=== PATIENT | male | born 1945 | race Caucasian/White ===

== ENCOUNTER 2019-10-29 14:16 | Outpatient (CLI) | payer MEDICARE, SELFPAY ==
[2019-10-29 15:09] LABS: Alanine Aminotransferase 26 U/L (4-50); Albumin Level 4.5 g/dL (3.5-5.1); Alkaline Phosphatase 67 U/L (38-126); Anion Gap 10.7 mmol/L (7-16); Aspartate Amino Transferase 24 U/L (17-59); Bilirubin,Total 0.6 mg/dL (0.2-1.3); Blood Urea Nitrogen 11 mg/dL (9-20); Calcium 9.2 mg/dL (8.4-10.2); Carbon Dioxide 30 mmol/L (22-30); Chloride 103 mmol/L (98-107); Cholesterol 106 mg/dL (0-200); Estimated Glomerular Filt Rate > 60; Glucose 89 mg/dL (75-110); HDL Direct 40 mg/dL; Potassium 4.7 mmol/L (3.4-5.0); Sodium 139 mmol/L (137-145); Triglycerides 225 mg/dL (<150)
[2019-10-29 15:20] LABS: LDL Cholesterol Direct 46 mg/dL
== END 2019-10-29 14:17 | disposition home or self-care (01) ==
LOC: ANHLAB 14:22
PROVIDERS: PCP Internal Medicine; Visit Provider Nurse Practitioner
DX: E78.5 Hyperlipidemia, unspecified (principal); Z79.899 Other long term (current) drug therapy
CPT/HCPCS: 36415; 80053; 80061; 84439; 84443

== ENCOUNTER 2020-11-03 15:47 | Outpatient (CLI) | payer MEDICARE, SELFPAY ==
[2020-11-03 16:50] LABS: Alanine Aminotransferase 20 U/L (4-50); Albumin Level 4.8 g/dL (3.5-5.1); Alkaline Phosphatase 67 U/L (38-126); Anion Gap 9 mmol/L (8-16); Aspartate Amino Transferase 23 U/L (17-59); Blood Urea Nitrogen 14 mg/dL (9-20); Calcium 9.8 mg/dL (8.4-10.2); Carbon Dioxide 24 mmol/L (22-30); Chloride 106 mmol/L (98-107); Cholesterol 118 mg/dL (0-200); Estimated Glomerular Filt Rate > 60; Glucose 123 mg/dL (65-110); HDL Direct 46 mg/dL; Potassium 4.9 mmol/L (3.4-5.0); Sodium 139 mmol/L (137-145); Triglycerides 349 mg/dL (<150)
[2020-11-03 17:05] LABS: LDL Cholesterol Direct 42 mg/dL
[2020-11-03 18:00] LABS: Prostate Specific Antigen 0.7 ng/mL (< OR = 4.0)
== END 2020-11-03 15:48 | disposition home or self-care (01) ==
PROVIDERS: PCP Internal Medicine; Visit Provider Nurse Practitioner
DX: Z12.5 Encounter for screening for malignant neoplasm of prostate (principal); E78.5 Hyperlipidemia, unspecified
CPT/HCPCS: 36415; 80053; 80061; 84153; G0103

== ENCOUNTER → 2020-11-21 13:46 | Outpatient (REF) | payer MEDICARE, SELFPAY | LOC: ANHLAB 13:46 | PROVIDERS: PCP Internal Medicine; Visit Provider Nurse Practitioner | DX: C44.229 Squamous cell carcinoma of skin of left ear and external auricular canal (principal) | CPT/HCPCS: 88305 ==

== ENCOUNTER → 2021-01-10 10:21 | Outpatient (REF) | payer MEDICARE, SELFPAY | LOC: ANHLAB 10:21 | PROVIDERS: PCP Internal Medicine; Visit Provider Nurse Practitioner | DX: C44.229 Squamous cell carcinoma of skin of left ear and external auricular canal (principal) | CPT/HCPCS: 88305; 88331 ==

== ENCOUNTER 2021-05-10 13:09 | Outpatient (CLI) | payer MEDICARE, SELFPAY ==
[2021-05-10 14:10] LABS: Cholesterol 112 mg/dL (0-200); HDL Direct 45 mg/dL; Triglycerides 128 mg/dL (<150)
[2021-05-10 14:21] LABS: LDL Cholesterol Direct 47 mg/dL
== END 2021-05-10 13:10 | disposition home or self-care (01) ==
PROVIDERS: PCP Internal Medicine; Visit Provider Nurse Practitioner
DX: E78.5 Hyperlipidemia, unspecified (principal)
CPT/HCPCS: 36415; 80061

== ENCOUNTER 2021-11-19 13:25 | Outpatient (CLI) | payer MEDICARE, SELFPAY ==
[2021-11-19 13:47] LABS: Alanine Aminotransferase 24 U/L (6-50); Albumin Level 4.8 g/dL (3.5-5.1); Alkaline Phosphatase 56 U/L (38-126); Anion Gap 8 mmol/L (8-16); Aspartate Amino Transferase 28 U/L (17-59); Blood Urea Nitrogen 15 mg/dL (9-20); Calcium 9.1 mg/dL (8.4-10.2); Carbon Dioxide 29 mmol/L (22-30); Chloride 101 mmol/L (98-107); Cholesterol 101 mg/dL (0-200); Estimated Glomerular Filt Rate > 60; Glucose 121 mg/dL (65-110); HDL Direct 45 mg/dL; Potassium 4.8 mmol/L (3.4-5.0); Sodium 138 mmol/L (137-145); Triglycerides 133 mg/dL (<150)
[2021-11-19 13:58] LABS: LDL Cholesterol Direct 32 mg/dL
[2021-11-19 14:17] LABS: Prostate Specific Antigen 0.8 ng/mL (< OR = 4.0)
== END 2021-11-19 13:26 | disposition home or self-care (01) ==
LOC: ANHLAB 13:27
PROVIDERS: PCP Internal Medicine; Visit Provider Internal Medicine
DX: E78.5 Hyperlipidemia, unspecified (principal); I10 Essential (primary) hypertension; Z79.899 Other long term (current) drug therapy; Z12.5 Encounter for screening for malignant neoplasm of prostate
CPT/HCPCS: 36415; 80053; 80061; 84153; G0103

== ENCOUNTER 2021-11-26 09:18 | Outpatient (CLI) | payer MEDICARE, SELFPAY ==
--- NOTE | ~2021-11-26 | CT_ITS ---
EXAMINATION:CT lung screening DATE: 11/26/2021 09:55 INDICATION: Tobacco use. Current smoker with 30 pack year history. TECHNIQUE: Computed tomography (CT) of the chest was performed without intravenous contrast. Automate d exposure control and iterative reconstruction technique were employed. The dose-length product (DLP ) was 115.00 mGy-cm. COMPARISON: CT abdomen and pelvis 01/13/2013 FINDINGS: There is mild scarring at the lung apices. There is moderate emphysema. There is mild atele ctasis bilaterally. Calcified bilateral lung nodules are consistent with old granulomatous disease. N o pleural effusion. The heart size is normal. No pericardial effusion. There is mild pectus excavatum . Chronic splenomegaly is noted. There is mild thoracic spondylosis. IMPRESSION: 1. Lung-RADS category 2: Benign appearance or behavior. Continue annual screening with noncontrast lo w-dose chest CT in 12 months. Reviewed, dictated and finalized at location A. IMPRESSION: 1. Lung-RADS category 2: Benign appearance or behavior. Continue annual screeni ng with noncontrast low-dose chest CT in 12 months.
== END 2021-11-26 09:19 | disposition home or self-care (01) ==
LOC: ANHIMG 09:24
PROVIDERS: PCP Internal Medicine; Visit Provider Internal Medicine
DX: Z12.2 Encounter for screening for malignant neoplasm of respiratory organs (principal); Z87.891 Personal history of nicotine dependence
CPT/HCPCS: 71271

== ENCOUNTER 2022-08-08 12:51 | Outpatient (CLI) | payer MEDICARE, SELFPAY ==
[2022-08-08 13:24] LABS: Alanine Aminotransferase 28 U/L (6-50); Alkaline Phosphatase 52 U/L (38-126); Anion Gap 10 mmol/L (8-16); Aspartate Amino Transferase 34 U/L (17-59); Bilirubin,Total 1.2 mg/dL (0.2-1.3); Blood Urea Nitrogen 18 mg/dL (9-20); Calcium 8.8 mg/dL (8.4-10.2); Carbon Dioxide 25 mmol/L (22-30); Chloride 103 mmol/L (98-107); Cholesterol 105 mg/dL (0-200); Estimated Glomerular Filt Rate > 60; Glucose 114 mg/dL (65-110); HDL Direct 43 mg/dL; Potassium 4.8 mmol/L (3.4-5.0); Sodium 138 mmol/L (137-145); Triglycerides 144 mg/dL (<150)
[2022-08-08 13:34] LABS: LDL Cholesterol Direct 41 mg/dL
== END 2022-08-08 12:52 | disposition home or self-care (01) ==
PROVIDERS: PCP Family Medicine; Visit Provider Nurse Practitioner
DX: E78.5 Hyperlipidemia, unspecified (principal)
CPT/HCPCS: 36415; 80053; 80061

== ENCOUNTER 2023-02-18 14:13 | Outpatient (CLI) | payer MEDICARE, SELFPAY ==
[2023-02-18 15:00] LABS: Hematocrit 40.8 % (42.0-52.0); Hemoglobin 12.9 g/dL (14.0-18.0); Mean Corpuscular HGB Conc 31.6 g/dl (32-36); Mean Corpuscular Hemoglobin 29.9 pg (26-34); Mean Corpuscular Volume 94.4 fl (80-100); Mean Platelet Volume 9.5 fl (7.4-10.4); Platelet Count Result 388 k/mm3 (150-375); Red Blood Count 4.32 M/mm3 (4.6-6.20); Red Cell Distribution Width 16.6 % (11.5-14.5); White Blood Count 10.3 K/mm3 (4.5-10.0)
[2023-02-18 15:07] LABS: Alanine Aminotransferase 19 U/L (6-50); Albumin Level 4.5 g/dL (3.5-5.1); Alkaline Phosphatase 54 U/L (38-126); Anion Gap 7 mmol/L (8-16); Aspartate Amino Transferase 28 U/L (17-59); Bilirubin,Total 1.1 mg/dL (0.2-1.3); Blood Urea Nitrogen 14 mg/dL (9-20); Calcium 8.9 mg/dL (8.4-10.2); Carbon Dioxide 29 mmol/L (22-30); Chloride 104 mmol/L (98-107); Cholesterol 107 mg/dL (0-200); Estimated Glomerular Filt Rate > 60; Glucose 112 mg/dL (65-110); HDL Direct 43 mg/dL; Potassium 4.6 mmol/L (3.4-5.0); Sodium 140 mmol/L (137-145); Triglycerides 125 mg/dL (<150)
[2023-02-18 15:17] LABS: LDL Cholesterol Direct 49 mg/dL
== END 2023-02-18 14:14 | disposition home or self-care (01) ==
PROVIDERS: PCP Family Medicine; Visit Provider Nurse Practitioner
DX: R61 Generalized hyperhidrosis (principal); E78.5 Hyperlipidemia, unspecified
CPT/HCPCS: 36415; 80053; 80061; 85027

== ENCOUNTER 2023-03-22 14:20 | Emergency (ER) | payer MEDICARE, SELFPAY ==
--- NOTE | ~2023-03-22 | XR_ITS ---
EXAMINATION: XR chest 1V portable 03/22/2023 19:52 INDICATION: Cough PROCEDURE: 2 view chest COMPARISON: Comparison to multiple prior studies sequentially, with oldest reviewed study dated 08/2005. FINDINGS: The lungs are clear. The cardiomediastinal silhouette is within normal limits. There are no pleural effusions. There is no pneumothorax suspected. Calcified granuloma left lung base. IMPRESSION: 1: NO ACUTE CARDIOPULMONARY DISEASE. Reviewed, dictated and finalized at location A. OPERATIONS INTELLIGENCE CHIEF
[2023-03-22 14:23] VITALS: BP 118/53; PULSE 38; RESP 18; TEMP 37; O2SAT 97
--- NOTE | 2023-03-22 14:35 | ECG_ITS ---
Measurements Intervals [place] Rate: 93 P: 79 CO: 180 QRS: 0 QRSD: 96 T: 75 QT: 357 QTc: 445 Interpretive Statements SINUS RHYTHM WITH FREQUENT SUPRAVENTRICULAR PREMATURE COMPLEXES POSSIBLE RIGHT VENTRICULAR CONDUCTION DELAY [RSR (QR) IN V1/V2] NO PREVIOUS ECG AVAILABLE FOR COMPARISON Electronically Signed On 03-22-2023 19:55:30 SOCIAL INSURANCE ANALYST by Heather Long M.D.
[2023-03-22 14:57] LABS: Hematocrit 41.5 % (42.0-52.0); Hemoglobin 13.2 g/dL (14.0-18.0); Mean Corpuscular HGB Conc 31.8 g/dl (32-36); Mean Corpuscular Hemoglobin 29.8 pg (26-34); Mean Corpuscular Volume 93.7 fl (80-100); Mean Platelet Volume 10.1 fl (7.4-10.4); Platelet Count Result 355 k/mm3 (150-375); Red Blood Count 4.43 M/mm3 (4.6-6.20); Red Cell Distribution Width 16.9 % (11.5-14.5); White Blood Count 6.5 K/mm3 (4.5-10.0)
[2023-03-22 15:03] LABS: Alanine Aminotransferase 31 U/L (6-50); Albumin Level 4.7 g/dL (3.5-5.1); Alkaline Phosphatase 60 U/L (38-126); Anion Gap 11 mmol/L (8-16); Aspartate Amino Transferase 42 U/L (17-59); Bilirubin,Total 1.4 mg/dL (0.2-1.3); Blood Urea Nitrogen 19 mg/dL (9-20); Calcium 8.8 mg/dL (8.4-10.2); Carbon Dioxide 27 mmol/L (22-30); Chloride 101 mmol/L (98-107); Estimated CRCL calculation 55 ml/min; Estimated Glomerular Filt Rate > 60; Glucose 211 mg/dL (65-110); Lipase 41 U/L (23-300); Sodium 139 mmol/L (137-145)
[2023-03-22 15:34] LABS: Influenza A QL RT-PCR Negative (Negative); Influenza B QL RT-PCR Negative (Negative); RSV RNA, RT-PCR Negative (Negative); SARS-CoV-2 RNA PCR Positive (Negative)
[2023-03-22 15:41] LABS: Band Neutrophils Percent 6 % (0-6); Eosinophils Absolute Manual 0.13 K/mm3 (0.02-0.5); Eosinophils Percent Manual 2 % (0-4); Lymphocytes Absolute Manual 0.65 K/mm3 (1.1-4.5); Neutrophils Absolute Manual 5.72 K/mm3 (1.3-6.7); Neutrophils Percent Manual 82 % (46-73); Nucleated Red Blood Cells 1 %; Total Cells Counted 100
[2023-03-22 15:42] LABS: Hypochromasia 1+ (NORMAL); Platelet Estimate Adequate (Adequate); Schistocytes None Seen (NORMAL)
[2023-03-22 15:43] LABS: Anisocytosis 2+ (NORMAL)
[2023-03-22 18:05] VITALS: BP 123/77; PULSE 82; RESP 16; O2SAT 95
--- NOTE | 2023-03-22 19:36 | ED.GENADULT ---
HPI - General Adult General Chief complaint: Unspecified Stated complaint: flu Time Seen by Provider: 03/22/23 19:28 History of Present Illness HPI narrative: Patient is a 77-year-old male who presents to the emergency department this evening due to cough and in congestion. Son who is present at bedside provides the majority of the history as the patient is very hard of hearing. Son states that the patient has been exposed to COVID recently and when he started to cough son decided to bring him in for further evaluation and check an x-ray does not have a pneumonia. Patient denies any symptoms including chest pain, shortness of breath, nausea, vomiting, abdominal pain, dysuria, hematuria, constipation, diarrhea, melena, hematochezia, fevers or chills. Patient also denies any headaches, dizziness, lightheadedness, blurry visions, focal weakness, numbness and or tingling. There are no other modifying, alleviating, or precipitating factors at this time. Related Data Home Medications Medication Instructions Recorded Confirmed famotidine 20 mg tablet (Pepcid AC) 20 mg PO DAILY 05/03/19 08/15/22 aspirin 81 mg tablet,delayed 162 mg PO BID 11/04/19 08/15/22 release Allergies Allergy/AdvReac Type Severity Reaction Status Date / Time pseudoephedrine Allergy Unknown Unknown Verified 02/25/23 13:26 Tetanus Vaccines and Toxoid Allergy Unknown Unknown Verified 02/25/23 13:26 BEES Allergy Severe SEVERE Uncoded 02/25/23 13:26 REACTIONS Horse Serum Proteins Allergy Severe SEVERE Uncoded 02/25/23 13:26 LOCAL REACTION Review of Systems Review of Systems: All systems are reviewed and are negative unless stated otherwise in the HPI. [facility] Past Medical History Medical History Benign essential hypertension CAD (coronary artery disease) Deafness History of GI bleed Insomnia Lumbago Other and unspecified hyperlipidemia Surgical History Surgical History History of appendectomy History of cardiac cath History of coronary artery stent placement History of tonsillectomy and adenoidectomy Social History Social History Social History: pt states he quit smoking 6months Smoking packs per day: 0.5 Smoking cigarettes per day: 10.0 Years smoked: 60 Smoking pack-years: 30.00 Smoking status: Former smoker Tobacco type: cigarettes Second hand tobacco smoke exposure: Yes Alcohol intake: current Alcohol use details: social Substance use: never Substance use type: does not use Exam Narrative: General: Alert, awake, afebrile, in no acute distress. HEENT: PERRL, no rhinorrhea, no post nasal drip, oropharynx clear. Neck: Trachea midline, no JVD, no lymphadenopathy. Cardiovascular: Regular rate and rhythm, no murmurs, rubs or gallops, no peripheral edema. Respiratory: Clear to auscultation bilaterally, no tachypnea, no wheezing, no rhonchi, no rubs, no respiratory distress. Abdomen: Soft, nontender, nondistended, no rebound, no guarding, no peritoneal signs. Musculoskeletal: No joint swelling or deformity, normal muscle tone. Skin: No rashes or petechia, no signs of infection. Psychiatric: Alert and oriented, normal behavior and judgment for situation. Neurological: Alert and oriented to person, place, and time. Follows all commands. No focal deficits, speech is clear and fluent. Course Vital Signs Vital signs: Vital Signs Temperature 98.6 F 03/22/23 14:23 Pulse Rate 38 L 03/22/23 14:23 Respiratory Rate 18 03/22/23 14:23 Blood Pressure 118/53 L 03/22/23 14:23 Pulse Oximetry 97 03/22/23 14:23 Oxygen Delivery Room Air 03/22/23 14:23 Temperature 98.6 F 03/22/23 14:23 Pulse Rate 82 03/22/23 18:05 Respiratory Rate 16 03/22/23 18:05 Blood Pressure 123/77 03/22/23 18:05 Pulse Oximetry 95
[2023-03-22 20:34] VITALS: BP 112/80; PULSE 86; O2SAT 97
== END 2023-03-22 20:44 | disposition home or self-care (01) ==
PROVIDERS: Emergency Medicine; Emergency Provider Emergency Medicine; PCP Family Medicine
DX: U07.1 COVID-19 (principal); I10 Essential (primary) hypertension; I25.10 Atherosclerotic heart disease of native coronary artery without angina pectoris; H91.90 Unspecified hearing loss, unspecified ear; E78.5 Hyperlipidemia, unspecified
CPT/HCPCS: 36415; 71045; 80053; 83690; 85025; 87637; 93005; 99283

== ENCOUNTER 2023-04-23 14:08 | Emergency (ER) | payer MEDICARE, SELFPAY ==
[2023-04-23] VITALS (9 sets, daily range): BP systolic 111–132; BP diastolic 63–79; PULSE 61–75; RESP 15–18; TEMP 36.3; O2SAT 97–100
--- NOTE | ~2023-04-23 | XR_ITS ---
EXAMINATION: XR chest 2V DATE: 04/23/2023 16:40 INDICATION: Fall. TECHNIQUE: Frontal and lateral views of the chest were obtained. COMPARISON: Chest single view 03/22/2023, chest CT 11/26/2021 FINDINGS: Calcified bilateral lung nodules are consistent with old granulomatous disease. There is mi ld scarring at the lung apices. No pleural effusion or pneumothorax. Cardiomegaly is noted. Pectus ex cavatum is noted. IMPRESSION: 1. Stable mild scarring at the lung apices. 2. Cardiomegaly. Reviewed, dictated and finalized at location E. [employer]
--- NOTE | ~2023-04-23 | CT_ITS ---
EXAMINATION: CT abdomen pelvis w con DATE: 04/23/2023 18:32 INDICATION: Right abdominal pain. TECHNIQUE: Computed tomography (CT) of the abdomen and pelvis was performed with 100 mL Omnipaque 350 intravenous contrast. Automated exposure control and iterative reconstruction technique were employe d. The dose-length product was 479.78 mGy-cm. COMPARISON: CT abdomen and pelvis 01/13/2013 FINDINGS: The visualized portions of the lung bases demonstrate mild atelectasis. There is a tiny rig ht pneumothorax. There is gas in right chest wall. There are fractures of the right 10th, 11th, and 1 2th ribs. The heart size is normal. 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 There is a small pericardial effusion. The liver and gallbladder are normal. There is severe splenomegaly measuring 22.8 cm. The pancreas, adrenal glands, and right kidney are no rmal. There is a 5 mm cyst in left kidney. There is a left inguinal hernia containing fat. There is d iverticulosis of the colon without evidence of diverticulitis. There are no dilated loops of bowel. T he appendix is not visualized. There are no pathologically enlarged lymph nodes. There is no free int raperitoneal fluid. There are changes of right inguinal hernia repair. There is severe lumbar spondyl osis. IMPRESSION: 1. Acute fractures of the right 10th-12th ribs. 2. Tiny right pneumothorax. 3. Small pericardial effusion. 4. Severe splenomegaly, worsened from 01/13/2013. Reviewed, dictated and finalized at location E. FINISHER
--- NOTE | ~2023-04-23 | CT_ITS ---
EXAMINATION:CT diagnostic chest w con DATE: 04/23/2023 20:03 INDICATION: Right chest pain. Right pneumothorax. TECHNIQUE: Computed tomography (CT) of the chest was performed with 75 mL Omnipaque 350 intravenous c ontrast. Automated exposure control and iterative reconstruction technique were employed. The dose-le ngth product (DLP) was 213.00 mGy-cm. COMPARISON: Chest CT 11/26/2021 FINDINGS: There is moderate emphysema. There is a small right pneumothorax. There is mild atelectasis bilaterally. Calcified bilateral lung nodules are consistent with old granulomatous disease. No pleu ral effusion. There is gas in right chest wall. 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 There is a small pericardial effusion. There is severe splenomega ly. There are fractures of right 10th, 11th, and 12th ribs. IMPRESSION: 1. Acute fractures of right 10th-12th ribs. 2. Small right pneumothorax. 3. Small pericardial effusion. 4. Moderate emphysema. 5. Severe splenomegaly. Reviewed, dictated and finalized at location E. EL ENGINEER
--- NOTE | 2023-04-23 17:07 | ED.FALL ---
HPI - Fall General Chief Complaint: Fall Stated Complaint: pain from fall Time Seen by Provider: 04/23/23 16:45 Source: patient Limitations: language barrier (partially deaf) History of Present Illness HPI Narrative: patient is partially deaf and presents with the following note: Doctor what happened, I was out on my deck Friday walking down the stairs to the bird feeder, but deck and stairs were kind of watery with little or no ice. At the bottom of the stairs is a concrete pad, I stepped on that and both feet flew out from under me and I hit my right side and right back on the wooden stairs. Now right side of back was hurting, so I took 2 aspirins and went to bed. Friday still sore but pain has moved along to the outside of ribcage. Took 2 aspirins every 4 hours. Friday about the same but later that night pain really hurting on right side and aspirins not helping! Friday pain really hurting and I can not sleep on my left side either and I do not sleep on my back as it makes my back is sore, but had no choice! Woke up sweating, hurting and temp only 97.2. Something is wrong I should be getting better, not worse. Shouldn't have to hold my right side to get up and do things. What do you recommend? x-rays? CT scan ? Just go the ER at the hospital? Patient is reasonably well understand when he speaks. Able to confirm that above history. States he tried to give note to PCP who recommended he present to the ED, has not been worked up for these injuries yet. He confirms that it was 2 325mg tablets of aspirin he was taking every 4 hours at times, not acetaminophen or ibuprofen. Cause of hearing loss is unknown, he states he saw someone for it at [facility] 16 years ago. He has a chronic cough but attributes this to smoking, quit 2 years ago; no acute changes. Did not lose consciousness. Not on blood thinners. LBM was 2-3 days ago. No blood in urine or stool. Decreased PO intake. Related Data Home Medications Medication Instructions Recorded Confirmed famotidine 20 mg tablet (Pepcid AC) 20 mg PO DAILY 05/03/19 08/15/22 aspirin 81 mg tablet,delayed 162 mg PO BID 11/04/19 08/15/22 release Allergies Allergy/AdvReac Type Severity Reaction Status Date / Time pseudoephedrine Allergy Unknown Unknown Verified 02/25/23 13:26 Tetanus Vaccines and Toxoid Allergy Unknown Unknown Verified 02/25/23 13:26 BEES Allergy Severe SEVERE Uncoded 02/25/23 13:26 REACTIONS Horse Serum Proteins Allergy Severe SEVERE Uncoded 02/25/23 13:26 LOCAL REACTION PMFSH Past Medical History Medical History Benign essential hypertension CAD (coronary artery disease) Deafness History of GI bleed Insomnia Lumbago Other and unspecified hyperlipidemia Surgical History Surgical History History of appendectomy History of cardiac cath History of coronary artery stent placement History of tonsillectomy and adenoidectomy Social History Social History Social History: Has a son Smoking packs per day: 0.5 Smoking cigarettes per day: 10.0 Years smoked: 60 Smoking pack-years: 30.00 Smoking status: Former smoker Tobacco type: cigarettes Second hand tobacco smoke exposure: Yes Alcohol intake: current Alcohol use details: social Substance use: never Substance use type: does not use Living arrangements: alone Exam Const: General: no acute distress, alert and ill appearing; No confusion or diaphoretic Nutritional Appearance: well nourished Orientation/consciousness: patient oriented x3 Limitations: language barrier (partial deafness but communicates through writing ) Other: does not use ASL or read lips; patient is fairly easily understood when he talks HENMT: Head: normal to inspection Face/Nose/Sinus: Normal external nose present Eye
[2023-04-23] MEDS: HYDROcodone/acetaminophen (*CRX) 5-325 MG TABLET 1 TAB PO (17:44)
[2023-04-23] MEDS: ACETAMINOPHEN 325 MG TABLET 650 MG PO (17:44)
[2023-04-23 17:57] LABS: Hematocrit 40.1 % (42.0-52.0); Hemoglobin 12.5 g/dL (14.0-18.0); Mean Corpuscular HGB Conc 31.2 g/dl (32-36); Mean Platelet Volume 9.7 fl (7.4-10.4); Platelet Count Result 485 k/mm3 (150-375); Red Blood Count 4.31 M/mm3 (4.6-6.20); Red Cell Distribution Width 17.2 % (11.5-14.5); White Blood Count 16.4 K/mm3 (4.5-10.0)
[2023-04-23 18:07] LABS: Salicylate 8.1 mg/dL (2-20)
[2023-04-23 18:08] LABS: Alanine Aminotransferase 22 U/L (6-50); Albumin Level 4.6 g/dL (3.5-5.1); Alkaline Phosphatase 74 U/L (38-126); Anion Gap 9 mmol/L (8-16); Aspartate Amino Transferase 38 U/L (17-59); Bilirubin,Total 1.6 mg/dL (0.2-1.3); Blood Urea Nitrogen 17 mg/dL (9-20); Calcium 9.2 mg/dL (8.4-10.2); Carbon Dioxide 27 mmol/L (22-30); Chloride 103 mmol/L (98-107); Estimated Glomerular Filt Rate > 60; Glucose 124 mg/dL (65-110); Lipase 21 U/L (23-300); Potassium 4.6 mmol/L (3.4-5.0); Sodium 139 mmol/L (137-145)
[2023-04-23 18:19] LABS: Band Neutrophils Percent 4 % (0-6); Eosinophils Absolute Manual 0.16 K/mm3 (0.02-0.5); Eosinophils Percent Manual 1 % (0-4); Lymphocytes Absolute Manual 0.65 K/mm3 (1.1-4.5); Monocytes Absolute Manual 1.96 K/mm3 (0.1-0.90); Monocytes Percent Manual 12 % (3-9); Neutrophils Absolute Manual 13.61 K/mm3 (1.3-6.7); Neutrophils Percent Manual 79 % (46-73); Nucleated Red Blood Cells 1 %; Platelet Estimate Increased (Adequate); Total Cells Counted 100
[2023-04-23 18:20] LABS: Anisocytosis 2+ (NORMAL); Hypochromasia 1+ (NORMAL); Schistocytes None Seen (NORMAL)
--- NOTE | 2023-04-23 19:36 | PC.NURSE ---
1935-REPORT TO [facility]. PATIENT MOVED TO ED 12.
--- NOTE | 2023-04-23 22:04 | PC.NURSE ---
Report given to [facility] for transfer.
== END 2023-04-23 22:08 | disposition short-term general hospital (02) ==
LOC: ANHED 16:55
PROVIDERS: Emergency Provider Student in an Organized Health Care Education/Training Program; PCP Family Medicine
DX: J93.9 Pneumothorax, unspecified (principal); S22.41XA Multiple fractures of ribs, right side, initial encounter for closed fracture; D72.829 Elevated white blood cell count, unspecified; D64.9 Anemia, unspecified; H91.90 Unspecified hearing loss, unspecified ear; I10 Essential (primary) hypertension; I25.10 Atherosclerotic heart disease of native coronary artery without angina pectoris; W00.9XXA Unspecified fall due to ice and snow, initial encounter; Z79.899 Other long term (current) drug therapy
CPT/HCPCS: 36415; 71046; 71260; 74177; 80053; 80307; 83690; 85025; 99284; 99285; A9270; Q9967

== ENCOUNTER 2023-08-20 11:21 | Outpatient (CLI) | payer MEDICARE, SELFPAY ==
[2023-08-20 12:10] LABS: Alanine Aminotransferase 16 U/L (6-50); Albumin Level 4.6 g/dL (3.5-5.1); Alkaline Phosphatase 62 U/L (38-126); Anion Gap 9 mmol/L (4-12); Aspartate Amino Transferase 28 U/L (17-59); Bilirubin,Total 0.8 mg/dL (0.2-1.3); Blood Urea Nitrogen 21 mg/dL (9-20); Carbon Dioxide 26 mmol/L (22-30); Chloride 105 mmol/L (98-107); Cholesterol 98 mg/dL (0-200); Estimated Glomerular Filt Rate > 60; Glucose 108 mg/dL (65-110); HDL Direct 42 mg/dL; Potassium 5.2 mmol/L (3.4-5.0); Sodium 140 mmol/L (137-145); Triglycerides 116 mg/dL (<150)
[2023-08-20 12:21] LABS: LDL Cholesterol Direct 49 mg/dL
[2023-08-20 12:30] LABS: Hemoglobin A1C 5.2 % (<5.7)
== END 2023-08-20 11:22 | disposition home or self-care (01) ==
LOC: ANHLAB 11:23
PROVIDERS: PCP Nurse Practitioner; Visit Provider Nurse Practitioner
DX: E78.5 Hyperlipidemia, unspecified (principal); R73.09 Other abnormal glucose
CPT/HCPCS: 36415; 80053; 80061; 83036

== ENCOUNTER 2024-09-14 15:33 | Outpatient (CLI) | payer MEDICARE, SELFPAY ==
[2024-09-14 15:54] LABS: Hematocrit 39.3 % (42.0-52.0); Hemoglobin 12.7 g/dL (14.0-18.0); Mean Corpuscular HGB Conc 32.3 g/dl (32-36); Mean Corpuscular Hemoglobin 30.2 pg (26-34); Mean Corpuscular Volume 93.6 fl (80-100); Mean Platelet Volume 9.6 fl (7.4-10.4); Platelet Count Result 434 k/mm3 (150-375); Red Cell Distribution Width 17.2 % (11.5-14.5); White Blood Count 10.6 K/mm3 (4.5-10.0)
--- OUTSIDE RECORDS SUMMARY | 2024-09-14 16:27 | XMS_ITS | Clinical Summary ---
Author Organization [facility] [address] Address [address] [place] [address] Care Team Providers Care Auto Heater Mechanic Name Role Phone Mynor Eckert DO Primary Care Provider [phone] Allergies Active Allergy Reactions Criticality Noted Date Comments Tetanus Vaccines And Toxoid Medications famotidine (ACID SIDING STAPLER, FAMOTIDINE,) 20 mg tablet take 1 tablet (20MG) by ORAL route every day 0 2 Active ascorbic acid (vitamin C) 1,000 mg tablet take 1 by Oral route once 0 0 4 Active multivitamin tablet tablet take 1 by Oral route once 0 0 4 Active nitroglycerin (NITROSTAT) 0.[address] 1 tablet by buccal route at the first sign of an attack; no more than 3 tabs are recommended within a 15 minute period. 25 1 2 Active simvastatin (ZOCOR) 20 mg tablet Take 1 tablet (20 mg total) by mouth nightly. 90 tablet 3 8 Active carvedilol (COREG) 6.25 mg tablet 1 tablet 2 (two) times a day 9 Active aspirin 81 mg enteric coated tablet Take 2 tablets (162 mg total) by mouth 2 (two) times a day 4 01/28/20 28 Active cyclobenzaprine (FLEXERIL) 5 mg tablet Take 1 tablet (5 mg total) by mouth 3 (three) times a day 30 tablet 4 Active senna-docusate (PERICOLACE) 8.6-50 mgIndications:c onstipation Take 1 tablet by mouth 2 (two) times a day 10 tablet 4 Active polyethylene glycol (MIRALAX) 17 gram/dose bulk powderIndicatio ns:constipation Take 17 g by mouth daily for 7 days 119 g 4 Active oxyCODONE (ROXICODONE) 5 mg immediate release tabletIndicatio ns:Pain Take 1 tablet (5 mg total) by mouth every 4 (four) hours as needed for pain 20 tablet 4 Active lidocaine (ASPERCREME) 4 % adhesive patch,medicated Indications:liana n Place 1 patch on the skin daily 10 patch 4 Active Active Problems Problem Noted Date Diagnosed Date Closed fracture of multiple ribs of right side, initial encounter 04/24/2023 Assessment & Plan (04/24/2023 4:33 PM CATH LAB RADIOLOGY TECHNICIAN): - IS (pulling [id number] in ED) - pain control - wean O2 as able - RD HLD (hyperlipidemia) 04/24/2023 Assessment & Plan (04/24/2023 4:55 PM CATH LAB RADIOLOGY TECHNICIAN): Continue simvastatin 20 mg HS Acute pain 04/24/2023 Assessment & Plan (04/24/2023 4:57 PM CATH LAB RADIOLOGY TECHNICIAN): APAP 1 gram Q 6 hrs scheduled Flexeril 5 mg tid Oxycodone 5 mg Q 4 hrs prn Bilateral hearing loss 04/24/2023 Assessment & Plan (04/24/2023 5:01 PM CATH LAB RADIOLOGY TECHNICIAN): Pt states he does not have hearing aides, does not hear voiced, TV or movies -pt uses [employer] board for communication Coronary artery disease invo lving [place] coronary artery of [place] heart without angina pectoris 03/27/2017 Assessment & Plan (04/24/2023 4:56 PM CATH LAB RADIOLOGY TECHNICIAN): Home dose Carvedilol 6.25 mg bid Hold due to hypotensive episode likely 2/2 analgesic History of coronary artery stent placement 03/27 Social History Tobacco Use Types Packs/Day Years Used Date Smoking Tobacco: Every Day Smokeless Tobacco: Never Tobacco Cessation:Ready to Q uit: Not Asked; Counseling Given: Not Answered Comments:Smoking History Packs/day: 1 Packs Alcohol Use Standard Drinks/Week Comments No 0 (1 standard drink = 0.6 oz pur e alcohol) Personal Safety Answer Date Recorded Have you ever been in or are you currently in a harmful physical or emotional relationship or is someone making you feel afraid or unsafe? Denies 04/23/2023 Sex and Gender Information Value Date Recorded Sex Assigned at Not on file Legal Sex Male 1:56 AM CATH LAB RADIOLOGY TECHNICIAN Gender Identity Not on file Sexual Orientation Not on file Obstetrics History Last Filed Vital Signs Vital Sign Reading Time Taken Comments Blood Pressure 95/71 04/25/2023 12:00 PM CATH LAB RADIOLOGY TECHNICIAN Pulse 80 04/25/2023 1:00 PM CATH LAB RADIOLOGY TECHNICIAN Temperature 36.4 C (97.6 F) 04/25/2023 12:00 PM CATH LAB RADIOLOGY TECHNICIAN Respiratory Rate 17 04/25/2023 1:00 PM CATH LAB RADIOLOGY TECHNICIAN Oxygen Saturation 91% 04/25/2023 12:00 PM CATH LAB RADIOLOGY TECHNICIAN Inhaled Oxygen Concentration - - Weight 82.1 kg (181 lb) 04/24/2023 7:45 PM CATH LAB RADIOLOGY TECHNICIAN Height 177.8 cm (5' 10) 04/24/2023 7:45 PM CATH LAB RADIOLOGY TECHNICIAN Body Mass Index 25.97 04/24/2023 7:45 PM CATH LAB RADIOLOGY TECHNICIAN Plan of Treatment Health Maintenance Due Date Last Done Comments Depression Screening 1945 Hepatitis C Screening 1945 DTaP/Tdap/Td Vaccine (1 - Tdap) 1956 Hepatitis B Screening 11/15/1963 Pneumococcal vaccine 65+ (1 of 2 - PCV) 1964 Zoster Vaccine (1 of 2) 11/15/1995 Abdominal Aortic Aneurysm (A AA) Screen 2010 Well Visit 65+ 2010 Fall Risk Assessment 04/25/2024 04/25/2023 Influenza Vaccine (Season Ended) 2024 01/21/2016, 01/11/2015, 01/25/2014, Additional history exists Insurance [employer] MEDICARE [facility] MEDICARE ADVANTAGE MEDICARE ADVANTAGE [facility] Address: [address] [address] MEDICARE ADVANTAGE Advance Directives For more information, please contact: [phone] * Full Code (Latest Code Status on File) Date Activated Date Inactivated Comments 04/24/2023 4:27 AM 04/25/2023 6:21 PM Care Teams Auto Heater Mechanic Relationship Specialty Start Date End Date Mynor Eckert DO PCP - General Internal Medicine 04/08/19
--- OUTSIDE RECORDS SUMMARY | 2024-09-14 16:27 | XMS_ITS | Referral Summary ---
Author Organization [facility] [address] Address [address] [place] [address] Care Team Providers Care Ceo And Co Founder Name Role Phone Mynor Eckert DO Primary Care Provider [phone] Allergies Active Allergy Reactions Criticality Noted Date Comments Tetanus Vaccines And Toxoid Medications famotidine (ACID CHILD SUPPORT CASE OFFICER, FAMOTIDINE,) 20 mg tablet take 1 tablet [...] 04/24/2023 Assessment & Plan (04/24/2023 4:33 PM SPRAY BLENDER): - IS (pulling [id number] in ED) - pain control - wean O2 as able - RD HLD (hyperlipidemia) 04/24/2023 Assessment & Plan (04/24/2023 4:55 PM SPRAY BLENDER): Continue simvastatin 20 mg HS Acute pain 04/24/2023 Assessment & Plan (04/24/2023 4:57 PM SPRAY BLENDER): APAP 1 gram Q 6 hrs scheduled Flexeril 5 mg tid Oxycodone 5 mg Q 4 hrs prn Bilateral hearing loss 04/24/2023 Assessment & Plan (04/24/2023 5:01 PM SPRAY BLENDER): Pt states he does not have hearing aides, does not hear voiced, TV or movies -pt uses [employer] board for communication Coronary artery disease invo lving [place] coronary artery of [place] heart without angina pectoris 03/27/2017 Assessment & Plan (04/24/2023 4:56 PM SPRAY BLENDER): Home dose Carvedilol 6.25 mg bid Hold [...] on file Legal Sex Male 1:56 AM SPRAY BLENDER Gender Identity Not on file Sexual Orientation Not on file Last Filed Vital Signs Vital Sign Reading Time Taken Comments Blood Pressure 95/71 04/25/2023 12:00 PM SPRAY BLENDER Pulse 80 04/25/2023 1:00 PM SPRAY BLENDER Temperature 36.4 C (97.6 F) 04/25/2023 12:00 PM SPRAY BLENDER Respiratory Rate 17 04/25/2023 1:00 PM SPRAY BLENDER Oxygen Saturation 91% 04/25/2023 12:00 PM SPRAY BLENDER Inhaled Oxygen Concentration - - Weight 82.1 kg (181 lb) 04/24/2023 7:45 PM SPRAY BLENDER Height 177.8 cm (5' 10) 04/24/2023 7:45 PM SPRAY BLENDER Body Mass Index 25.97 04/24/2023 7:45 PM SPRAY BLENDER Plan of Treatment Not on file Insurance [facility] MEDICARE [facility] MEDIC[facility] Address: [facility] [id number] [place] [address] [facility] MEDICARE ADVANTAGE MEDICARE ADVANTAGE MEDICARE ADVANTAGE Advance Directives For more information, please contact: [phone] * Full Code (Latest Code Status on File) Date Activated Date Inactivated Comments 04/24/2023 4:27 AM 04/25/2023 6:21 PM Care Teams Ceo And Co Founder Relationship Specialty Start Date End Date Mynor Eckert DO PCP - General Internal Medicine 04/08/19
[2024-09-14 16:52] LABS: Alanine Aminotransferase 14 U/L (6-50); Albumin Level 4.6 g/dL (3.5-5.1); Alkaline Phosphatase 56 U/L (38-126); Anion Gap 8 mmol/L (4-12); Aspartate Amino Transferase 36 U/L (17-59); Bilirubin,Total 1.2 mg/dL (0.2-1.3); Blood Urea Nitrogen 15 mg/dL (9-20); Calcium 8.8 mg/dL (8.4-10.2); Carbon Dioxide 27 mmol/L (22-30); Chloride 101 mmol/L (98-107); Cholesterol 80 mg/dL (0-200); Estimated Glomerular Filt Rate > 60; Glucose 102 mg/dL (65-110); HDL Direct 33 mg/dL; Potassium 4.8 mmol/L (3.4-5.0); Sodium 136 mmol/L (137-145); Total Protein 7.1 g/dL (6.3-8.2); Triglycerides 218 mg/dL (<150)
[2024-09-14 17:39] LABS: LDL Cholesterol Direct < 30 mg/dL
== END 2024-09-14 15:34 | disposition home or self-care (01) ==
PROVIDERS: PCP Nurse Practitioner; Visit Provider Nurse Practitioner
DX: E78.5 Hyperlipidemia, unspecified (principal); I10 Essential (primary) hypertension
CPT/HCPCS: 36415; 80053; 80061; 85027